=== PATIENT | female | born 1955 | race Caucasian/White ===

== ENCOUNTER 2018-10-21 08:25 | Day surgery (SDC) | payer BC ==
[~2018-10-21] VITALS: Ht 167.6 cm; Wt 70.3 kg
[2018-10-21] VITALS (10 sets, daily range): BP systolic 104–130; BP diastolic 61–86
[2018-10-21] MEDS ORDERED: ZINC50 MG ORAL (09:05)
[2018-10-21] MEDS ORDERED: THERACURMIN PO (09:05)
[2018-10-21] MEDS ORDERED: GLUCOSAMINE1000 M1 PO (09:05)
[2018-10-21] MEDS ORDERED: VITAMIN D400 INTLU ORAL (09:05)
[2018-10-21] MEDS ORDERED: PROBIOTIC1 EAC2 PO (09:05)
[2018-10-21] MEDS ORDERED: CALCIUM500 M2 PO (09:05)
[2018-10-21] MEDS ORDERED: [UNRECOGNIZED DRUG - OTHER] PO (09:05)
[2018-10-21] MEDS ORDERED: MULTIVITAMIN PO (09:05)
[2018-10-21] MEDS ORDERED: OMEGA 3 FISH O1 EAC1 PO (09:05)
--- NOTE | 2018-10-21 09:19 | Pre-Procedure Note/Attestation ---
Pre-Procedure Note/Attestation Complete Prior to Procedure Planned Procedure: right Procedure Narrative: Right groin hs excision and reconstruction Attestation I attest that I discussed the nature of the procedure; its benefits; risks and complications; and alternatives (and the risks and benefits of such alternatives ), prior to the procedure, with the patient (or the patient's legal food service representative). I attest that, if there was a reasonable possibility of needing a blood transfusion, the patient (or the patient's legal food service representative) was given the [facility] standardized written summary, pursuant to the Fran[place] Blood Safety Act ([place] Health and Safety Code # 1645, as amended). I attest that I re-evaluated the patient just prior to the surgery and that there has been no change in the patient's H&P, except as documented below: Ashtyn Olivo MD Oct 21, 2018 09:19
[2018-10-21] MEDS ORDERED: LR 1000ml 1,000 ML IVLG SCH (09:23)
--- NOTE | 2018-10-21 09:26 | Anethesia Preoperative Eval ---
Anesthesia Pre-op PMH/ROS General Date of Evaluation: Oct 21, 2018 Time of Evaluation: 09:41 Anesthesiologist: Angela ASA Score: ASA 2 Mallampati Score Class I : Soft palate, uvula, fauces, pillars visible Class II: Soft palate, uvula, fauces visible Class III: Soft palate, base of uvula visible Class IV: Only hard plate visible Mallampati Classification: Class I Surgeon: Geovani Diagnosis: Groin Hidradinitis Surgical Procedure: Right Groin Excision and Reconstruction Anesthesia History: none Family History: no anesthesia problems Allergies: Coded Allergies: No Known Allergies (Unverified , 10/21/18) Medications: see eMAR Patient NPO?: Yes Past Medical History Cardiovascular: Reports: HTN PSxH Narrative: Plastic SX Anesthesia Pre-op Phys. Exam Physician Exam Last Vital Signs Date Time Temp Pulse Resp B/P (MAP) Pulse Ox O2 Delivery O2 Flow Rate FiO2 10/21/18 09:20 97.9 88 18 130/84 97 Room Air Constitutional: NAD Neurologic: CN 2-12 intact Cardiovascular: RRR Respiratory: CTA Gastrointestinal: S/NT/ND Airway Exam Mallampati Score: Class I MO: full ROM: full Teeth: intact Anesthesia Pre-op A/P Risk Assessment & Plan Assessment: ASA 2 Plan: GA, SED Status Change Before Surgery: No Pre-Antibiotics Dru Gram Ancef IV Given Within 1 Hr of Incision: Yes Time Given: 09:51 Jj Miller MD Oct 21, 2018 09:26
[2018-10-21] MEDS ORDERED: EPINEPHrine 1mg/1ml Amp ONE (09:28)
[2018-10-21] MEDS ORDERED: Lidocaine 1% 10mg/ml/Epi 0.005mg/ml 30ml vial INJ ONE (09:28)
[2018-10-21] MEDS ORDERED: NeoSporin Gu Irrig 1ml Amp IRRIG ONE (09:29)
[2018-10-21] MEDS ORDERED: Bacitracin 50000 Units Vial ONE (09:29)
[2018-10-21] MEDS ORDERED: Hydromorphone 0.5mg/0.5ml inj IVP PRN (09:30)
[2018-10-21] MEDS ORDERED: HYDROcodone/Acetamin 5/325 tab ORAL PRN (09:30)
[2018-10-21] MEDS ORDERED: Meperidine 50mg/ml Inj(FOR RIGORS ONLY) IVP PRN (09:30)
[2018-10-21] MEDS ORDERED: Acetaminophen (Non formulary) 100 ML IV ONE (09:30)
[2018-10-21] MEDS ORDERED: DiphenhydrAMINE 50mg/ml Inj IVP PRN (09:30)
[2018-10-21] MEDS ORDERED: LORazepam Inj 2mg/ml 1ml IV PRN (09:30)
[2018-10-21] MEDS ORDERED: fentaNYL 100 mcg/2 mL IV PRN (09:30)
[2018-10-21] MEDS ORDERED: Labetalol 5mg/ml 20ml vial IV PRN (09:30)
[2018-10-21] MEDS ORDERED: oxyCODONE HCL/Acetaminophen 5/325mg ORAL PRN (09:30)
[2018-10-21] MEDS ORDERED: HYDROcodone/Acetamin 7.5/325 tab ORAL PRN (09:30)
[2018-10-21] MEDS ORDERED: Midazolam 2mg/2ml Inj IVP PRN (09:30)
[2018-10-21] MEDS ORDERED: Metoclopramide 10mg/2ml Inj IVP PRN (09:30)
[2018-10-21] MEDS ORDERED: Atropine Sulfate 0.4mg/ml inj IVP PRN (09:30)
[2018-10-21] MEDS ORDERED: Ketorolac 30mg Inj IV PRN ×2 (09:30)
[2018-10-21] MEDS ORDERED: Lidocaine 1% Plain 30 ml INJ ONE (09:31)
[2018-10-21] MEDS ORDERED: Dexamethasone 4mg/ml vial ONE (09:43)
[2018-10-21] MEDS ORDERED: Sodium Chloride 10ml vial INJ ONE (09:43)
[2018-10-21] MEDS ORDERED: fentaNYL 100 mcg/2 mL IV ONE (09:45)
[2018-10-21] MEDS ORDERED: Propofol 1,000mg/ 100ml btl IV ONE (10:00)
[2018-10-21] MEDS ORDERED: Sterile Water Irrig 1000ml IRRIG ONE (10:00)
[2018-10-21] MEDS ORDERED: LR 1000ml ONE (10:00)
[2018-10-21] MEDS ORDERED: NS Irrig 1000ml IRRIG ONE (10:10)
--- NOTE | 2018-10-21 10:15 | Immediate Post-Op Evaluation ---
Immediate Post-Op Evalulation Immediate Post-Op Evalulation Procedure: Right Groin Excision and Reconstruction Date of Evaluation: Oct 21, 2018 Time of Evaluation: 11:23 IV Fluids: 500 LR Blood Products: 0 Estimated Blood Loss: 25 Urinary Output: 0 Blood Pressure Systolic: 104 Blood Pressure Diastolic: 61 Pulse Rate: 84 Respiratory Rate: 16 O2 Sat by Pulse Oximetry: 99 Temperature (Fahrenheit): 97.4 Pain Score (1-10): 2 Nausea: No Vomiting: No Complications 0 Patient Status: awake, reacts, patent, none Hydration Status: adequate Dru Gram Ancef IV Given Within 1 Hr of Incision: Yes Time Given: 09:51 Jj Miller MD Oct 21, 2018 10:15
[2018-10-21] MEDS ORDERED: Flumazenil 0.1mg/ml 5ml Inj IV ONE (10:31)
--- NOTE | 2018-10-21 10:56 | Discharge Instructions ---
Discharge Instructions Discharge Instructions Diet: regular Resume Normal Activity?: No Follow Up Orders Follow up in 1-2 weeks Special Instructions Remove dressings in 3 days and can shower on . Patient has my cell number to contact me with any questions For Surgical Patients Dressing Care: keep dry and clean May shower: No For Congestive Heart Failure Reminder Report to your physician any weight gain of 5 pounds or more in one week. Ashtyn Olivo MD Oct 21, 2018 10:56
--- NOTE | 2018-10-21 10:57 | Operative Note - PDOC ---
Operative Note Operative Note Pre-op Diagnosis: Right groin hidradenitis suppurativa Procedure: Excision of right groin HS with adjacent tissue transfer closure Surgeon: Geovani Powerplant Operator: Praveen Anesthesia: general Specimen: yes Complications: none Condition: stable Estimated Blood Loss: minimal Drains: none Implant(s) used?: No Ashtyn Olivo MD Oct 21, 2018 10:57
--- NOTE | 2018-10-21 11:15 | 48 Hour Post Anesthesia Eval ---
Post Anesthesia Evaluation Procedure: Right Groin Excision and Reconstruction Date of Evaluation: Oct 21, 2018 Time of Evaluation: 13:43 Blood Pressure Systolic: 128 0: 78 Pulse Rate: 87 Respiratory Rate: 18 Temperature (Fahrenheit): 98.2 O2 Sat by Pulse Oximetry: 99 Airway: patent Nausea: No Vomiting: No Pain Intensity: 2 Hydration Status: adequate Cardiopulmonary Status: Stable Mental Status/LOC: patient returned to baseline Follow-up Care/Observations: 0 Post-Anesthesia Complications: 0 Follow-up care needed: ready to discharge Jj Miller MD Oct 21, 2018 11:15
--- NOTE | 2018-10-21 17:15 | Operative Note - Dictated ---
DATE OF OPERATION: 10/21/2018 PREOPERATIVE DIAGNOSIS: Right groin hidradenitis suppurativa stage II. POSTOPERATIVE DIAGNOSIS: Right groin hidradenitis suppurativa stage II. PROCEDURES: 1. Radical excision of right groin tissue bearing hidradenitis suppurativa stage II. 2. Adjacent tissue transfer closure of right groin wound measuring 30 square cm. SURGEON: Ashtyn Olivo M.D. BLUEPRINT MAKER: Jerrod Morton M.D. ANESTHESIA: General. COMPLICATIONS: None. DRAINS: None. DISPOSITION: Stable to recovery room. INDICATIONS FOR SURGERY: This is a 63-year-old female, who has a three-year history of progressive hidradenitis suppurativa which started on her right groin. She tried multiple antibiotics, was seen by shear tender in her hometown of [place] ago but was not getting any significant improvement. She came in for consultation to see me last week where she was noted to have some areas of stage II right groin hidradenitis with one particular area that was in the mid groin that was a healing abscess, this caused her significant discomfort on routine daily basis as such she was interested in undergoing excision of the involved tissue with reconstruction. I explained the process of removal with reconstruction using adjacent tissue transfer. She understood the risks and benefits of surgery and agreed to proceed. DETAILS OF THE OPERATION: The patient was brought to the operating room and laid in the lithotomy position on the operating room table. After induction of anesthesia, her perineum and bilateral groins were prepped and draped in a sterile and usual fashion. The area in question, the right groin was marked out using an elliptical type of incision designed, the measurements were 10 x 4 centimeters. Once this was marked out, we injected a total of 10 mL of lidocaine with epinephrine into the subcutaneous space and then after 5 minutes elapsed, a #15-blade was then used to make the skin incision to excise the diseased and infection bearing tissue all the way down to the level of the adductor fascia. This resulted in a 10 x 3 centimeter defect which was not amenable to primary closure. As such, adjacent tissue transfer had to be pursued. Based on the flap designed and necessary, it appeared that the lower portion of the wound was in most need of soft tissue coverage in terms of the defect size as such inferior back cut was designed over the medial thigh to allow for advancement of a medial thigh flap. Once the back cut incision was made, this incision measured approximately 3 cm to allow for a tension-free advancement. The wound was irrigated. Once hemostasis was achieved, the medial thigh tissue that had been elevated was then inset into the medial wound edge using 0 Vicryl sutures for the deep layers all the way up as well as 2-0 Vicryl sutures for the dermis. The skin was closed with a combination of a 3-0 running Prolene suture and further reinforced with interrupted 3-0 Prolene sutures. Dermabond was applied to the skin. A compressive dressing was then applied as well. Plan will be for the patient to leave the dressing in place for the next 72 hours at which point in time, she can then shower as well. She will be seen by me in the office within next 7 to 14 days for wound check as well as the patient has my contact information to be able to get in touch if there are any problems. The patient tolerated the procedure well. There were no complications. All needles and sponge counts were correct. Ashtyn Olivo M.D. DR: Romero JOB#: [id number] CC:
== END 2018-10-21 13:05 | disposition home or self-care (01) ==
LOC: SUR 08:25
DX: L73.2 Hidradenitis suppurativa (principal); I10 Essential (primary) hypertension
CPT/HCPCS: 11463; 14001; J0690; J1100; J2001; J2250; J2405; J2704; J3010; 94003; 94150